=== PATIENT | male | born 1955 | race Caucasian/White ===

== ENCOUNTER → 2019-08-18 | Outpatient (CLI) | payer MEDICARE ==
[~2019-08-18] MED LIST: METOPROLOL 1 MG/ML, 5ML ONE; VISIPAQUE 320 MG/ML, 150ML BOTTLE ONE
[2019-08-18 11:15] LABS: CREATININE 1.15 mg/dL (0.7-1.3)
== END | disposition home or self-care (01) ==
LOC: CVU 09:46
PROVIDERS: ATTEND Family Medicine
DX: I35.0 Nonrheumatic aortic (valve) stenosis (principal); I25.10 Atherosclerotic heart disease of native coronary artery without angina pectoris; I65.23 Occlusion and stenosis of bilateral carotid arteries; I70.0 Atherosclerosis of aorta; Q25.46 Tortuous aortic arch; I26.99 Other pulmonary embolism without acute cor pulmonale; I77.1 Stricture of artery; K57.30 Diverticulosis of large intestine without perforation or abscess without bleeding; K40.90 Unilateral inguinal hernia, without obstruction or gangrene, not specified as recurrent; N40.1 Benign prostatic hyperplasia with lower urinary tract symptoms; M47.815 Spondylosis without myelopathy or radiculopathy, thoracolumbar region; J90 Pleural effusion, not elsewhere classified; J84.10 Pulmonary fibrosis, unspecified; J81.1 Chronic pulmonary edema; Z90.49 Acquired absence of other specified parts of digestive tract; Z90.81 Acquired absence of spleen
CPT/HCPCS: 36415; 71275; 74174; 82565; 93880; 94010; 94726; 94729; Q9967

== ENCOUNTER 2019-09-16 05:31 | Inpatient (IN) | payer MEDICARE ==
[~2019-09-16] VITALS: Ht 167.6 cm; Wt 79.4 kg
[2019-09-16] MEDS ORDERED: SODIUM CHLORIDE 0.9% 1,000 ML IV ONE (06:08)
[2019-09-16 06:13] VITALS: BP 143/73
[2019-09-16] MEDS ORDERED: ONDANSETRON 2MG/ML, 2ML IVPush PRN (06:30)
[2019-09-16] MEDS ORDERED: CALC-112 PO (06:44)
[2019-09-16] MEDS ORDERED: TENO300T5 PO (06:44)
[2019-09-16] MEDS ORDERED: SIMV10TA18 PO (06:44)
[2019-09-16] MEDS ORDERED: TEST200V3 IM (06:44)
[2019-09-16] MEDS ORDERED: MULT-108 PO (06:51)
[2019-09-16] MEDS ORDERED: ASPI81TA45 PO (06:51)
[2019-09-16] MEDS ORDERED: LEVO175T5 PO (06:51)
[2019-09-16] MEDS ORDERED: ESCI10TA PO (06:51)
[2019-09-16] MEDS ORDERED: OMEP-110 PO (06:51)
[2019-09-16] MEDS ORDERED: OMEG-72 PO (06:51)
[2019-09-16] MEDS ORDERED: TENO25TA PO (06:59)
[2019-09-16 07:00] LABS: BASOPHILS # (AUTO) 0.06 x10^3/uL (0-0.1); BASOPHILS % (AUTO) 1 % (0-1); EOSINOPHILS % (AUTO) 5 % (1-7); LYMPHOCYTES # (AUTO) 2.58 x10^3/uL (1-3.4); LYMPHOCYTES % (AUTO) 33 % (22-44); MD NO; MEAN CORPUSCULAR HEMOGLOBIN 27.6 pg (27.5-34.5); MEAN CORPUSCULAR HGB CONC 32.3 g/dL (33.2-36.2); MEAN CORPUSCULAR VOLUME 85.3 fL (81-97); MEAN PLATELET VOLUME 8.6 fL (7.4-10.4); MONOCYTES # (AUTO) 1.06 x10^3/uL (0.2-0.8); MONOCYTES % (AUTO) 13 % (2-9); NEUTROPHILS # (AUTO) 3.83 x10^3/uL (1.8-6.8); NEUTROPHILS % (AUTO) 48 % (42-75); PLATELET COUNT 267 x10^3/uL (130-400); RED BLOOD COUNT 5.25 x10^6/uL (4.38-5.82); RED CELL DISTRIBUTION WIDTH 18.6 % (9.4-14.8)
[2019-09-16 07:04] LABS: INTERNATIONAL NORMALIZED RATIO 1.09 (0.93-1.1); PROTHROMBIN TIME 11.6 Seconds (9.6-11.5)
[2019-09-16 07:06] LABS: ALANINE AMINOTRANSFERASE 55 U/L (12-78); ANION GAP 7 mmol/L (5-15); CALCIUM 9.2 mg/dL (8.5-10.1); CHLORIDE 106 mmol/L (98-107); CREATININE 1.19 mg/dL (0.7-1.3)
[2019-09-16 07:10] LABS: ALKALINE PHOSPHATASE 83 U/L (45-117); BILIRUBIN,TOTAL 1.2 mg/dL (0.2-1.0); TOTAL PROTEIN 7.6 g/dL (6.4-8.2)
[2019-09-16] MEDS: CHLORHEXIDINE 15 ML UDC MM PRN ×2 (07:15→07:30)
[2019-09-16] MEDS ORDERED: FENTANYL PF 250 MCG/5ML ONE (07:26)
[2019-09-16] MEDS ORDERED: PROPOFOL 50 ML ONE (07:26)
[2019-09-16] MEDS ORDERED: CEFAZOLIN 1,000 MG ONE (07:45)
[2019-09-16] MEDS ORDERED: ONDANSETRON 2MG/ML, 2ML ONE (07:45)
[2019-09-16] MEDS ORDERED: PROTAMINE SULFATE 10 MG/ML, 5ML ONE (08:49)
[2019-09-16] MEDS ORDERED: CLOPIDOGREL 300 MG TABLET PO ONE (09:00)
[2019-09-16] MEDS: LEVOTHYROXINE 175 MCG TABLET PO SCH (09:00)
[2019-09-16] MEDS ORDERED: LABETALOL 20 MG/4 ML IVPush PRN (09:00)
[2019-09-16] MEDS: ASPIRIN 81 MG TABLET EC PO SCH (09:00)
[2019-09-16] MEDS: OMEPRAZOLE 20 MG CAPSULE.DR PO SCH (09:00)
[2019-09-16] MEDS ORDERED: hydrALAzine 20 MG/ML, 1ML IVPush PRN (09:00)
[2019-09-16] MEDS ORDERED: HEPARIN 1,000 UNITS/ML, 10ML ONE ×2 (09:12)
[2019-09-16] MEDS ORDERED: SUCCINYLCHOLINE 20 MG/ML, 10ML ONE (09:12)
[2019-09-16] MEDS ORDERED: ROCURONIUM 10MG/ML,5ML ONE (09:12)
[2019-09-16] MEDS ORDERED: CLOPIDOGREL 300 MG TABLET ONE (09:23)
[2019-09-16] MEDS ORDERED: ASPIRIN 81 MG TABLET EC ONE (09:25)
[2019-09-16 14:10] VITALS: BP 98/58
[2019-09-16 19:36] VITALS: BP 128/69
[2019-09-16] MEDS ORDERED: SIMVASTATIN 10 MG TABLET PO SCH (21:00)
[2019-09-16] MEDS: ACETAMINOPHEN 325 MG TABLET PO PRN (21:35)
[2019-09-16] MEDS: ESCITALOPRAM 10MG TABLET PO SCH (21:35)
[2019-09-17 01:09] VITALS: BP 131/80
[2019-09-17] MEDS: ACETAMINOPHEN 325 MG TABLET PO PRN (05:36)
[2019-09-17 05:38] LABS: ANION GAP 6 mmol/L (5-15); CALCIUM 8.9 mg/dL (8.5-10.1); CHLORIDE 104 mmol/L (98-107); CREATININE 1.06 mg/dL (0.7-1.3)
[2019-09-17 06:14] LABS: MEAN CORPUSCULAR HEMOGLOBIN 27.6 pg (27.5-34.5); MEAN CORPUSCULAR HGB CONC 32.4 g/dL (33.2-36.2); MEAN CORPUSCULAR VOLUME 85.3 fL (81-97); MEAN PLATELET VOLUME 8.7 fL (7.4-10.4); PLATELET COUNT 219 x10^3/uL (130-400); RED CELL DISTRIBUTION WIDTH 18.8 % (9.4-14.8)
[2019-09-17 06:50] LABS: MD YES
[2019-09-17 06:51] LABS: BASOS#(MANUAL) 0.14 x10^3/uL (0-0.1); BASOS% (MANUAL) 1 % (0-1); EOS#(MANUAL) 0.54 x10^3/uL (0.0-0.4); EOS% (MANUAL) 4 % (1-7); LYMPHS% (MANUAL) 14 % (22-44); MONOS#(MANUAL) 1.22 x10^3/uL (0.3-2.7); MONOS% (MANUAL) 9 % (2-9); SEG#(MANUAL) 9.79 x10^3/uL (1.8-6.8); SEGS% (MANUAL) 72 % (42-75)
[2019-09-17 06:53] LABS: ANISOCYTOSIS 1+; OVALOCYTES 1+; TARGET CELLS 1+
[2019-09-17 06:54] LABS: <PLATELET ESTIMATE> ADEQUATE; <PLT MORPHOLOGY> NORMAL PLT MORPH; HYPOCHROMIA 1+
[2019-09-17] MEDS: LEVOTHYROXINE 175 MCG TABLET PO SCH (07:22)
[2019-09-17] MEDS: OMEPRAZOLE 20 MG CAPSULE.DR PO SCH (07:22)
[2019-09-17 08:41] VITALS: BP 117/65
[2019-09-17] MEDS: ESCITALOPRAM 10MG TABLET PO SCH (08:43)
[2019-09-17] MEDS: ASPIRIN 81 MG TABLET EC PO SCH (08:45)
[2019-09-17] MEDS ORDERED: CLOPIDOGREL 75 MG TABLET PO SCH (09:00)
[2019-09-17] MEDS ORDERED: ASPIRIN 81 MG TABLET EC PO SCH (09:00)
[2019-09-17] MEDS ORDERED: ACET325T26 PO (09:15)
[2019-09-17] MEDS ORDERED: CLOP75TA PO (09:15)
== END 2019-09-17 11:57 | disposition home or self-care (01) | DRG 266 ==
LOC: ORIP 05:31 → 5SO 10:52
PROVIDERS: ADMIT Internal Medicine Cardiovascular Disease; ATTEND Internal Medicine Cardiovascular Disease
PROC: B24BZZ4 Ultrasonography of Heart with Aorta, Transesophageal (ICD-10-PCS; 2019-09-16)
PROC: B3101ZZ Fluoroscopy of Thoracic Aorta using Low Osmolar Contrast (ICD-10-PCS; 2019-09-16)
PROC: 02RF38Z Replacement of Aortic Valve with Zooplastic Tissue, Percutaneous Approach (ICD-10-PCS; principal; 2019-09-16 07:30)
DX: I35.0 Nonrheumatic aortic (valve) stenosis (principal); Z00.6 Encounter for examination for normal comparison and control in clinical research program; I50.33 Acute on chronic diastolic (congestive) heart failure; B18.1 Chronic viral hepatitis B without delta-agent; E03.9 Hypothyroidism, unspecified; E78.5 Hyperlipidemia, unspecified; I11.0 Hypertensive heart disease with heart failure; K21.9 Gastro-esophageal reflux disease without esophagitis; Z85.038 Personal history of other malignant neoplasm of large intestine; Z85.71 Personal history of Hodgkin lymphoma; Z90.81 Acquired absence of spleen
CPT/HCPCS: 33361; 36415; 80048; 80053; 83880; 85025; 85347; 85610; 85730; 86850; 86900; 86923; 93005; 93306; 93312; 93321; 93325; 93355; C1760; C1769; C1894; G0378; J0690; J1644; J2405; J2704; J2720; J3010; J0330; J0360; J7030; Q9967

== ENCOUNTER → 2019-10-29 | Outpatient (CLI) | payer MEDICARE ==
[~2019-10-29] MED LIST changes: +ACET325T26 PO; +ASPI81TA45 PO; +CALC-112 PO; +CLOP75TA PO; +ESCI10TA PO; +LEVO175T5 PO; -METOPROLOL 1 MG/ML, 5ML ONE; +MULT-108 PO; +OMEG-72 PO; +OMEP-110 PO; +SIMV10TA18 PO; +TENO25TA PO; +TENO300T5 PO; +TEST200V3 IM; -VISIPAQUE 320 MG/ML, 150ML BOTTLE ONE
== END | disposition home or self-care (01) ==
LOC: CVU 08:19
PROVIDERS: ATTEND Internal Medicine Cardiovascular Disease
DX: I08.1 Rheumatic disorders of both mitral and tricuspid valves (principal); I10 Essential (primary) hypertension; E78.5 Hyperlipidemia, unspecified; I65.29 Occlusion and stenosis of unspecified carotid artery; Z95.2 Presence of prosthetic heart valve
CPT/HCPCS: 93306

== ENCOUNTER → 2020-09-28 | Outpatient (CLI) | payer MEDICARE ==
[~2020-09-28] MED LIST changes: -ESCI10TA PO; +ESCI10TA97 PO
== END | disposition home or self-care (01) ==
LOC: CFH 10:55
PROVIDERS: ATTEND Internal Medicine Cardiovascular Disease
DX: I35.0 Nonrheumatic aortic (valve) stenosis (principal); R06.02 Shortness of breath; I65.29 Occlusion and stenosis of unspecified carotid artery
CPT/HCPCS: 93306